=== PATIENT | female | born 1980 | race Caucasian/White ===

== ENCOUNTER 2017-05-30 08:07 | Day surgery (SDC) | payer OTHER ==
[~2017-05-30] VITALS: Ht 165.1 cm; Wt 117.9 kg
[2017-05-30 08:44] VITALS: BP 98/60
[2017-05-30 10:53] VITALS: BP 106/58
== END 2017-05-30 12:20 | disposition home or self-care (01) ==
LOC: DS 08:07 → GI 09:30 → OR 10:30 → GI 10:30 → DS 12:20
PROVIDERS: Internal Medicine Gastroenterology
PROC: 0DBG8ZZ Excision of Left Large Intestine, Via Natural or Artificial Opening Endoscopic (ICD-10-PCS; principal; 2017-05-30 09:30)
DX: Z12.11 Encounter for screening for malignant neoplasm of colon (principal); D12.4 Benign neoplasm of descending colon; K57.30 Diverticulosis of large intestine without perforation or abscess without bleeding; Z98.84 Bariatric surgery status
CPT/HCPCS: 45378; J1200; J2250; J2310; J3010; J3490

== ENCOUNTER 2018-02-24 00:27 | Emergency (ER) | payer OTHER ==
[~2018-02-24] VITALS: Ht 162.6 cm; Wt 127.5 kg
[2018-02-24 00:32] VITALS: Ht 162.6 cm; Wt 127.5 kg
[2018-02-24 01:26] LABS: BASOPHIL % 0.8 % (0-2); PLATELET COUNT 256 x10^3mcL (130-400); RED CELL DISTRIBUTION WIDTH 14.5 % (11.5-14.5)
[2018-02-24 01:45] LABS: microscopic required? YES; urine erythrocyte 3+ (NEGATIVE)
[2018-02-24 01:48] LABS: CALCIUM 8.6 mg/dL (8.5-10.1); CARBON DIOXIDE 24.9 mmol/L (21-32); CHLORIDE SERUM 106 mmol/L (98-107); CREATININE SERUM 0.5 mg/dL (0.6-1.0); GFR1 > 60 mL/min; GLUCOSE SERUM 86 mg/dL (74-106); POTASSIUM SERUM 3.7 mmol/L (3.5-5.1); SODIUM SERUM 139 mmol/L (136-145)
[2018-02-24 03:30] VITALS: BP 129/71
== END 2018-02-24 03:30 | disposition home or self-care (01) ==
LOC: ED 00:27
PROVIDERS: Emergency Medicine
DX: O20.0 Threatened abortion (principal); R82.71 Bacteriuria; Z3A.12 12 weeks gestation of pregnancy
CPT/HCPCS: 36415

== ENCOUNTER 2018-06-18 14:37 | Emergency (ER) | payer OTHER ==
[~2018-06-18] VITALS: Ht 165.1 cm; Wt 125.6 kg
[2018-06-18 14:48] VITALS: BP 123/63
== END 2018-06-18 15:57 | disposition home or self-care (01) ==
LOC: ED 14:37
DX: S80.262A Insect bite (nonvenomous), left knee, initial encounter (principal); T63.441A Toxic effect of venom of bees, accidental (unintentional), initial encounter; E66.9 Obesity, unspecified; Z68.42 Body mass index [BMI] 45.0-49.9, adult; X58.XXXA Exposure to other specified factors, initial encounter; Y93.89 Activity, other specified; Y92.89 Other specified places as the place of occurrence of the external cause; Y99.8 Other external cause status
CPT/HCPCS: Q0163

== ENCOUNTER 2019-07-18 14:23 | Inpatient (IN) | payer OTHER ==
[~2019-07-18] VITALS: Ht 165.1 cm; Wt 132.1 kg
--- NOTE | 2019-07-18 15:16 | NUR ---
PT SENT TO LOBBY TO WAIT FOR AVAILABLE RM. VSSCLARENCE NOTED.
--- NOTE | 2019-07-18 17:35 | NUR ---
PER PT HAS HAD LLQ PAIN FOR TWO DAYS. PT STS SHE HAS HX OF OVARIAN CYSTS. PT DENIES ANY N/V. PT STS THAT SHE HAS HAD THIS PAIN BEFORE BUT THAT IT SUBSIDES WHEN SHE HAS HER PERIOD. UPON PALPATION PT HAS TENDERNESS TO LLQ/URQ. +BOWEL SOUNDS ALL FOUR QUADS. NOTED CARING ON ABDOMEN PT STS GASTRIC BYPASS 4 YEARS AGO. PT DENIES ANY TRAUAM. DENEIS ANURIA. NO DISTRESS NOTED, VSS. WILL CONTINUE TO MONITOR.
--- NOTE | 2019-07-18 17:44 | NUR ---
PT AMBULATED TO RESTROOM WITH STEADY GAIT.
--- NOTE | 2019-07-18 18:04 | NUR ---
MEDICATED PER EMAR.
--- NOTE | 2019-07-18 18:12 | NUR ---
US AT BEDSIDE.
[2019-07-18 18:15] LABS: CALCIUM 8.2 mg/dL (8.5-10.1); CARBON DIOXIDE 26.2 mmol/L (21-32); CHLORIDE SERUM 103 mmol/L (98-107); CREATININE SERUM 0.7 mg/dL (0.6-1.0); GFR1 > 60 mL/min; GLUCOSE SERUM 182 mg/dL (74-106); POTASSIUM SERUM 3.9 mmol/L (3.5-5.1); SODIUM SERUM 141 mmol/L (136-145)
[2019-07-18 18:16] LABS: BASOPHIL % 0.7 % (0-2); PLATELET COUNT 222 x10^3mcL (130-400); RED CELL DISTRIBUTION WIDTH 13.1 % (11.5-14.5)
[2019-07-18 18:22] LABS: ALKALINE PHOSPHATASE 67 U/L (46-116); ALT/SGPT 20 U/L (14-59); AST/SGOT 5 U/L (15-37); BILIRUBIN TOTAL 0.35 mg/dL (0.20-1.00); CHOLESTEROL 184 mg/dL (<200); HDL CHOLESTEROL 37 mg/dL (40-60); TOTAL PROTEIN, SERUM 7.1 g/dL (6.4-8.2)
[2019-07-18 18:24] LABS: ALBUMIN 3.2 g/dL (3.4-5.0); TRIGLYCERIDES 241 mg/dL (<150)
--- NOTE | 2019-07-18 19:14 | NUR ---
REPORT GIVEN TO AARON JOEL TO ASSUME CARE OF PT.
--- NOTE | 2019-07-18 19:16 | NUR ---
RECEIVED REPORT FROM ANABEL JOEL. ASSUMING ALL CARE. PT IS A/OX4. BREATHING IS E/U ON RA. NO S/S OF ACUTE DISTRESS NOTED. LAC IV REMAINS IN PLACE WITH NO S/S OF INFILTRATION NOTED. WILL CONT TO MONITOR
--- NOTE | 2019-07-18 21:00 | NUR ---
FACILITIES PLANT ENGINEER AT BEDSIDE
--- NOTE | 2019-07-18 21:43 | NUR ---
PT REQUESTING TO EAT AT THIS TIME. PER DR. QUEZADA, PT CAN NOT EAT AT THIS TIME. PT MADE AWARE AND NODDS HEAD IN AGREEMENT
--- NOTE | 2019-07-18 21:45 | NUR ---
X-RAY TECH AT BEDSIDE
[2019-07-18 21:52] LABS: MAGNESIUM 1.7 mg/dL (1.8-2.4); PHOSPHOROUS 3.5 mg/dL (2.5-4.9)
[2019-07-18] MEDS ORDERED: MASON NATURAL1000 IU PO (21:52)
--- NOTE | 2019-07-18 21:56 | NUR ---
REPORT GIVEN TO SUDHIR JOEL FOR CONTINUITY OF CARE. ALL QUESTIONS/CONCERNS ADDRESSED AT THIS TIME
--- NOTE | 2019-07-18 22:20 | NUR ---
RECEIVED PT FROM ELIZ Peoples/ ALISON YI
--- NOTE | 2019-07-18 22:20 | NUR ---
RECEIVED PT FROM ED VIA WHEELCHAIR, CAME IN DUE TO ABDOMINAL PAIN X3 DAYS. AAOX4. DENIES HEADACHE/DIZZINESS. ABLE TO FOLLOW COMMADNS. NO SOB NOTED. DENIES CHEST PAIN/PRESSURE. ABDOMEN IS SOFT. PT STATED THAT SHE ONLY HAS PAIN ON THE LEFT ABDOMEN ONLY ON DEEP PALPATION. DENIES NAUSEA/VOMITING. BOWEL SOUNDS ACTIVE. IV SITE PATENT AND INTACT. SIDE RAILS UPX2. CALL LIGHT ON REACH. ENDORSED TO PRIMARY NURSE CORA FOR CONTINUITY OF CARE
[2019-07-18 22:25] VITALS: BP 105/62
--- NOTE | 2019-07-18 22:25 | NUR ---
PT RECEIVED FROM RESOURCE NURSE A/O X4, ABLE TO MAKE NEEDS KNOWN. MED-SURG, DENIES ANY CP/PRESSURE. PULSES PALPABLE, NO EDEMA PRESENT. BREATHING IS EVEN AND UNLABORED ON RA, DENIES SOB, NO RESP DISTRESS NOTED. ABD SOFT AND ROUND, BOWEL TONES ACTIVE X4 QUAD, DENIES ANY N/V. PT ADMITTED FOR DIVERTICULITIS, BUT DENIES ANY ABD PAIN AT THIS TIME. SKIN IS WARM AND DRY, INTACT. VOIDS FREELY, BRP. AMBULATORY WITH STEADY GAIT. SKIN IS WARM AND DRY, INTACT. FLAGYL ONGOING TO IV TO LAC, SITE WNL. NO ACUTE DISTRESS NOTED. DAUGHTER AT BEDSIDE. ORIENTED PT TO ROOM AND CALL LIGHT. BED IN LOWEST SETTING, SIDE RAILS UP X2, CALL LIGHT WITHIN REACH. WILL CONT TO MONITOR.
[2019-07-18 22:31] VITALS: Ht 165.1 cm; Wt 132.1 kg
--- NOTE | 2019-07-19 01:10 | NUR ---
PT C/O 07/03 ABD PAIN, PRN MORPHINE IVP GIVEN ORDERED. NO ACUTE DISTRESS NOTED. CALL LIGHT WITHIN REACH. WILL CONT TO MONITOR.
[2019-07-19 05:27] VITALS: BP 100/55
[2019-07-19 07:12] LABS: BASOPHIL % 0.5 % (0-2); PLATELET COUNT 200 x10^3mcL (130-400); RED CELL DISTRIBUTION WIDTH 13.3 % (11.5-14.5)
--- NOTE | 2019-07-19 07:30 | NUR ---
RECEIVED PATIENT RESTING IN BED COMFORTABLY A/O X4, CLEAR SPEECH, NO NEURO DEFICITS NOTED. BREATHING EVEN AND UNLABBORED ON ROOM AIR, DENIES SOB, DENIES CHEST PAIN, NO DISTRESS NOTED. IV TO LAC INTACT INFUSING NS AT 100 ML/HR FREE FROM REDNESS AND INFILTRATION. PATIENT IS CALM WITH CARE. INSTRUCTED TO CALL FOR ASSISTANCE IF NEEDED. SAFETY PRECAUTIONS MAINTAINED. WILL MONITOR.
[2019-07-19 07:31] LABS: CALCIUM 7.6 mg/dL (8.5-10.1); CHLORIDE SERUM 104 mmol/L (98-107); CREATININE SERUM 0.6 mg/dL (0.6-1.0); GFR1 > 60 mL/min; GLUCOSE SERUM 92 mg/dL (74-106); MAGNESIUM 1.7 mg/dL (1.8-2.4); PHOSPHOROUS 3.9 mg/dL (2.5-4.9); POTASSIUM SERUM 3.5 mmol/L (3.5-5.1); SODIUM SERUM 141 mmol/L (136-145)
--- NOTE | 2019-07-19 07:45 | NUR ---
PT SLEPT WELL THROUGHOUT THE EVENING. BREATHING IS EVEN AND UNLABORED, NO RESP DISTRESS NOTED. PT DENIES ANY PAIN AT THIS TIME. NO ACUTE CHANGES ENCOUNTERED DURING SHIFT. ALL NEEDS MET AND ANTICIPATED. IVF INFUSING WELL, SITE WNL. CALL LIGHT WITHIN REACH. WILL ENDORSE CARE TO AM NURSE.
[2019-07-19 08:41] LABS: microscopic required? YES; urine erythrocyte NEGATIVE (NEGATIVE)
[2019-07-19 08:50] LABS: AMPHETAMINE QUAL UR NONE DETECTED (See below)
[2019-07-19 09:01] VITALS: BP 97/42
--- NOTE | 2019-07-19 09:22 | NUR ---
PATIENT RESTING IN BED COMFORTABLY, NO DISTRESS NOTED, DUE MEDICAITON GIVEN. ALL NEEDS ATTENDED TO SAFETY PRECAUTIONS MAINTAINED. WILL MONITOR.
--- NOTE | 2019-07-19 10:00 | NUR ---
ROUNDS MADE- DR. BARAHONA, RESIDENT TEAM, CHARGE NURSE AND PRIMARY NURSE AT BEDSIDE. POC REVIEWED WITH PATIENT- PT DX WITH DIVERTICULITIS, WILL CONTINUE WITH IV ABX TREATMENT. ALL QUESTIONS AND CONCERNS ADDRESSED. SAFETY PRECAUTIONS MAINTAINED.
--- NOTE | 2019-07-19 11:28 | NUR ---
PATIENT RESTING IN BED COMFORTABLY NO DISTRESS NOTED. ALL NEEDS ATTENDED TO, SAFETY PRECAUTIONS MAINTAINED. WILL MONITOR.
--- NOTE | 2019-07-19 12:12 | NUR ---
PATIENT C/O ACHING HEADACHE 5/10,MEDICATED WITH TYLENOL PO (SEE eMAR). ALL NEEDS ATTENDED TO, SAFETY PRECAUTIONS MAINTAINED. WILL MONITOR.
--- NOTE | 2019-07-19 14:25 | NUR ---
PATIENT RESTING IN BED COMFORTABLY NO DISTRESS NOTED, DUE MEDICATION GIVEN, TOLERATING WELL. IV TO LAC INTACT INFUSING IVF WELL FREE FROM REDNESS AND INFILTRATION. ALL NEEDS ATTENDED TO, SAFETY PRECAUTIONS MAINTAINED. WILL MONITOR.
--- NOTE | 2019-07-19 15:50 | NUR ---
PATIENT RESTING IN BED COMFORTABLY TALKING ON CELL PHONE, NO DISTRESS NOTED. ALL NEEDS ATTENDED TO, SAFETY PRECAUTIONS MAINTAINED. WILL MONITOR.
[2019-07-19 17:47] VITALS: BP 101/55
--- NOTE | 2019-07-19 19:05 | NUR ---
PATIENT RESTING IN BED COMFORTABLY, NO DISTRESS NOTED, FAMILY AT BEDSIDE. PATIENT C/O PAIN TO LAC IV SITE, NO REDNESS OR INFILTRATION NOTED, CATH REMOVED, INTACT. NEW IV PLACED TO PATIENTS LFA, 22 GAUGE, GOOD BLOOD RETURN AND FLUSHED WELL WITH 10 ML NS, PATIENT TOLERATED WELL, IVF RESUMED. NO ACUTE CHANGES NOTED DURING SHIFT. ALL NEEDS ATTENDED TO, SAFETY PRECAUTIONS MAINTAINED. WILL ENDORSE CARE TO ONCOMING NURSE.
--- NOTE | 2019-07-19 19:25 | NUR ---
RECIEVED PT RESTING IN BED WITH NO ACUTE DISTRESS FROM RN CHEMO, ASSESSMENT PERFORMED, NULTIPLE FAMILY MEMEBERS AT BEDSIDE, PT DENIES PAIN OR SOB AT THIS TIME, IV TO THE LFA, CDI, ALL PT NEEDS ATTENDED TO AT THIS TIME, SAFETY PRECAUTIONS IN PLACE, WILL CONTINUE TO MONITOR
[2019-07-19 20:32] VITALS: BP 104/52
--- NOTE | 2019-07-19 21:20 | NUR ---
PT FAMILY WENT HOME FOR THE NIGHT, ALL PATIENT NEEDS ATTENDED TO WILL CONTINUE TO MONITOR
--- NOTE | 2019-07-20 00:45 | NUR ---
PT RESTING IN BED WITH EYES CLOSED, NO ACUTE DISTRESS AT THIS TIME, REPIRATIONS EVEN AND UNLABORED, ALL NEEDS ATTENDED TO, AFETY PRECAUTIONS IN PLACE, WILL CONTINUE TO MONITOR
--- NOTE | 2019-07-20 03:10 | NUR ---
PT RESTING IN BED WATCHING TV, PT DENIES SOB OR PAIN AT THIS TIME, NO SIGNS OF DISTRESS AT THIS TIME, ALL PT NEEDS ATTENDED TO SAFETY PRECAUTIONS IN PLACE, WILL CONTINUE TO MONITOR
--- NOTE | 2019-07-20 05:12 | NUR ---
PT RESTED COMFORTABLY THROUGH SHIFT WITH NO ACUTE DISTRESS, PT WAS UP AND AMBULATED TO RESTROOM TO VOID, PT HAD NO EPISODES OF PAIN THROUGH EVENING, VSS, ALL PT NEEDS ATTENDED TO WILL CONTINUE TO MONITOR AND ENDORSE CARE TO ONCOMTING RN
[2019-07-20 05:19] VITALS: BP 108/54
[2019-07-20 06:25] LABS: BASOPHIL % 0.8 % (0-2); PLATELET COUNT 210 x10^3mcL (130-400); RED CELL DISTRIBUTION WIDTH 13.4 % (11.5-14.5)
[2019-07-20 06:37] LABS: CALCIUM 8.2 mg/dL (8.5-10.1); CHLORIDE SERUM 107 mmol/L (98-107); CREATININE SERUM 0.5 mg/dL (0.6-1.0); GFR1 > 60 mL/min; GLUCOSE SERUM 115 mg/dL (74-106); POTASSIUM SERUM 3.7 mmol/L (3.5-5.1); SODIUM SERUM 143 mmol/L (136-145)
--- NOTE | 2019-07-20 07:40 | NUR ---
RECEIVED PATIENT RESTING IN BED COMFORTBALY WITH A/O X4, NO NEURO DEFICITS. DENIES CHEST PAIN, BREATHING EVEN AND UNLABBORED ON ROOM AIR, DENIES SOB, NO DISTRESS NOTED., DEIES ANY PAIN. IV TO LFA INTACT INFUSING NS TKO, FREE FROM REDNESS AND INFILTRATION. PATIENT IS CALM WITH CARE. INSTRUCTED TO CALL FOR ASSISTANCE IF NEEDED. SAFETY PRECAUTIONS MAINTAINED. WILL MONITOR.
--- NOTE | 2019-07-20 08:50 | NUR ---
PATIENT C/O ITCHYNESS TO LFA ABOVE IV SITE INSERTION, NOTED A RED BUMP ABOVE IV SITE AND A SMALL BUMP AT LAC. PATIENT CURRENTLY RECEIVING LEVAQUIN IV AT 100 ML/HR, STOPPED AND WILL HOLD AND WILL NOTIFY MD. PATIENT RESTING COMFORTABLY IN BED, SON AT BEDSIDE. ALL NEEDS ATTENDED TO, SAFETY PRECAUTIONS MAINTAINED. WILL MONITOR.
--- NOTE | 2019-07-20 09:40 | NUR ---
DR. LANDA MADE AWARE PATIENT WAS GIVEN HER DOSE OF IV LEVAQUIN BUT PLACED IT ON HOLD PATIENT C/O ITCHYNESS AND NOTED A SMALL BUMP ABOVE IV SITE. PER DR. LANDA CONTINUE IV LEVAQUIN SHE NEEDS IT FOR HER DIVERTICULITIS, AND REQUESTED BENADRYL TO HELP RELIEVE PATIENTS ITCHYNESS. PER DR. LANDA WILL PLACE ORDER FOR BENADRYL, WILL CARRY OUT ORDER ONCE RECEIVED. PATIENT MADE AWARE AND VERBALIZED UNDERSTANDING.
[2019-07-20 10:03] VITALS: BP 103/48
--- NOTE | 2019-07-20 12:05 | NUR ---
PATIENT RESTING IN BED COMFORTABLY NO DISTRESS NOTED, NO FURHTER REDNESS OR ITCHYNESS TO LFA. SON AT BEDSIDE. ALL NEEDS ATTENDED, SAFETY PRECAUTIONS MAINTAINED. WILL MONITOR.
[2019-07-20] MEDS ORDERED: FLA500 PO (13:44)
[2019-07-20] MEDS ORDERED: LEVAQUIN750 MG PO (13:45)
[2019-07-20 14:06] VITALS: BP 103/48
--- NOTE | 2019-07-20 14:30 | NUR ---
PATIENT STABLE FOR DISCHARGE HOME. DISCHARGE INSTRUCTIONS, PRESCRIPTION, BELONGINGS LIST AND EDUCATIONAL MATERIAL REVIEWED AND GIVEN TO PATIENT, ALL QUESTIONS AND CONCERNS ADDRESSED. PATIENTS DAUGHTER IS TO PICK PATIENT UP.INSTRUCTED PATIENT TO NOTIFY STAFF WHEN DAUGHTER ARRIVES. SAFETY PRECAUTIONS MAINTAINED. WILL MONITOR.
--- NOTE | 2019-07-20 14:51 | NUR ---
PATIENT STABLE FOR DISCHARGE HOME, IV TO LFA REMOVED CATH INTACT. ID BANDS REMOVED. PATIENT ASSISTED DOWN TO LOBBY ACCOMPANIED BY NURSE AID WHILE DAUGHTER WAITS IN LOBBY, ALL PERSONAL BELONGINGS SENT HOME WITH PATIENT.
== END 2019-07-20 14:55 | disposition home or self-care (01) | DRG 244 ==
LOC: ED 14:23 → MU 21:09
PROVIDERS: Specialist; ADMIT General Practice
DX: K57.32 Diverticulitis of large intestine without perforation or abscess without bleeding (principal); E11.65 Type 2 diabetes mellitus with hyperglycemia; E44.1 Mild protein-calorie malnutrition; E78.5 Hyperlipidemia, unspecified; J45.909 Unspecified asthma, uncomplicated; Z98.84 Bariatric surgery status; Z79.84 Long term (current) use of oral hypoglycemic drugs; Z90.49 Acquired absence of other specified parts of digestive tract; Z83.3 Family history of diabetes mellitus; Z82.49 Family history of ischemic heart disease and other diseases of the circulatory system; Z80.0 Family history of malignant neoplasm of digestive organs; E83.51 Hypocalcemia; Z68.43 Body mass index [BMI] 50.0-59.9, adult
CPT/HCPCS: 82962; G0378; J1885; J1956; J2270; J3475; J3490; J7030; Q0092

== ENCOUNTER 2019-09-14 17:15 | Emergency (ER) | payer OTHER ==
[~2019-09-14 17:15] MED LIST: FLA500 PO; LEVAQUIN750 MG PO; MASON NATURAL1000 IU PO
[2019-09-14 20:09] LABS: CALCIUM 8.1 mg/dL (8.5-10.1); CARBON DIOXIDE 30.6 mmol/L (21-32); CHLORIDE SERUM 105 mmol/L (98-107); CREATININE SERUM 0.6 mg/dL (0.6-1.0); GFR1 > 60 mL/min; GLUCOSE SERUM 116 mg/dL (74-106); POTASSIUM SERUM 3.9 mmol/L (3.5-5.1); SODIUM SERUM 141 mmol/L (136-145)
[2019-09-14 20:12] LABS: BASOPHIL % 1.1 % (0-2); PLATELET COUNT 253 x10^3mcL (130-400); RED CELL DISTRIBUTION WIDTH 12.4 % (11.5-14.5)
[2019-09-14 20:14] LABS: ALKALINE PHOSPHATASE 71 U/L (46-116); ALT/SGPT 16 U/L (14-59); AST/SGOT 6 U/L (15-37); BILIRUBIN TOTAL 0.1 mg/dL (0.20-1.00); LIPASE 100 IU/L (73-393)
[2019-09-14 20:16] LABS: ALBUMIN 3.2 g/dL (3.4-5.0)
[2019-09-14 22:30] VITALS: BP 109/76
== END 2019-09-14 22:30 | disposition home or self-care (01) ==
LOC: ED 17:15
PROVIDERS: Emergency Medicine
DX: R10.31 Right lower quadrant pain (principal); R10.32 Left lower quadrant pain; J45.909 Unspecified asthma, uncomplicated; Z98.890 Other specified postprocedural states
CPT/HCPCS: 36415

== ENCOUNTER 2020-06-15 19:42 | Emergency (ER) | payer OTHER, SELFPAY ==
[~2020-06-15] VITALS: Ht 162.6 cm; Wt 116.6 kg
[2020-06-15 19:44] VITALS: BP 141/95; Ht 162.6 cm; Wt 116.6 kg
== END 2020-06-15 20:24 | disposition home or self-care (01) ==
LOC: ED 19:42
DX: R05 Cough (principal); R06.02 Shortness of breath; M79.10 Myalgia, unspecified site; J45.909 Unspecified asthma, uncomplicated